=== PATIENT | male | born 1975 | race African-American/Black ===

== ENCOUNTER 2022-04-20 15:39 | Emergency (ER) | payer OTHER ==
[2022-04-20] MEDS ORDERED: KETOROLAC 30 MG/ML INJ ONE (16:32)
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
[2022-04-20 19:37] VITALS: TEMP 98.1
[2022-04-20 19:40] VITALS: BP 125/90; O2SAT 100
== END 2022-04-20 19:33 | disposition home or self-care (01) ==
LOC: ER 15:39
DX: S39.012A Strain of muscle, fascia and tendon of lower back, initial encounter (principal); S50.11XA Contusion of right forearm, initial encounter; S20.213A Contusion of bilateral front wall of thorax, initial encounter; V49.88XA Car occupant (driver) (passenger) injured in other specified transport accidents, initial encounter; M54.50 Low back pain, unspecified
CPT/HCPCS: 71045; 72100; 96372; 99283